=== PATIENT | female | born 1990 | race Caucasian/White ===

== ENCOUNTER 2018-06-03 22:39 | Day surgery (SDC) | payer BC, SELFPAY ==
[2018-06-03 23:09] VITALS: BP 121/74; TEMP 98.3; BMI 36.6
--- NOTE | 2018-06-04 05:13 | PRG ---
DATE OF SERVICE: 06/04/2018 PRIMARY OB: Ms. Diane Lebron. CHIEF COMPLAINT: Abdominal pains. HISTORY OF PRESENT ILLNESS: The patient is a 28-year-old G2, P1 female with an intrauterine pregnanc y at 36 weeks' and 3 days, who is presenting with onset of uterine contractions. She reports that th ey last about 1 minute and feel like they are just a few minutes apart. She denies any severe pain w ith the contractions, but they are moderately uncomfortable. The patient denies vaginal bleeding or leakage of fluid. She denies urinary urgency or frequency. She denies any falls or trauma. She rep orts intermittent headaches, none currently. Denies fever, chest pain, shortness of breath, cough, n ausea, vomiting, any new rashes, hip problems, knee problems, vaginal bleeding, leakage of fluid, uri nary urgency or frequency. She denies (02:00) muscle weakness. PAST MEDICAL HISTORY: Negative. PAST SURGICAL HISTORY: Negative. ALLERGIES: No known drug allergies. MEDICATIONS: vitamins and iron. OB LABS: Unavailable. SOCIAL HISTORY: Denies drug, alcohol, or tobacco use. REVIEW OF SYSTEMS: Per HPI. PHYSICAL EXAMINATION: VITAL SIGNS: Blood pressure is 121/74, heart rate of 91, respiratory rate of 20, temperature 98.3. GENERAL: She appears to be in no acute distress. She is alert and oriented, cooperative and pleasan t to interact with. HEENT: Normocephalic, atraumatic. LUNGS: Clear to auscultation bilaterally. HEART: Regular rate and rhythm. ABDOMEN: Gravid and soft, nontender. EXTREMITIES: Has some mild to moderate edema, 1+ symmetrical in the both legs. GENITOURINARY: Cervical exam is 140 and -3 station with the repeat exam 2 hours later unchanged. heart tracing performed for abdominal pain has been continuous now for nearly 3 hours. Baselin e is noted to be in the 110s to 120s with moderate long-term variability, positive 15 x 15 accelerati ons, no decelerations. Tocometer shows irregular contractions anywhere from 1 to 4 minutes apart. ASSESSMENT AND PLAN: The patient is a 28-year-old G2, P1 female with an intrauterine at 36 weeks' and 4 days and a history of delivery at 37 weeks with her previous , who is presenti ng with uterine contractions and found to be latently laboring. The patient has no evidence of activ e labor at this time. The patient has been offered pain medication prior to discharge, which she has declined. The patient will be discharged to home. She has instructions to follow up with her prima ry OB, Diane Bernardino as scheduled. She has been given term labor precautions. Fetus has a reac tive NST and category 1 tracing.
== END 2018-06-04 02:45 | disposition home or self-care (01) ==
LOC: L&D/OP 22:39
PROVIDERS: ATTEND Advanced Practice Midwife
DX: O47.03 False labor before 37 completed weeks of gestation, third trimester (principal); Z3A.36 36 weeks gestation of pregnancy

== ENCOUNTER 2018-06-08 07:17 | Day surgery (SDC) | payer SELFPAY ==
[2018-06-08 08:00] VITALS: BMI 35.4
[2018-06-08 08:07] VITALS: BP 120/86; TEMP 98.4
[2018-06-08 12:39] LABS: Bilirubin Negative (Negative); Blood, Urine Negative (Negative); Clarity CLEAR (Clear); Glucose, Urine (Dipstick) Negative (Negative); Leukocyte Negative (Negative); Nitrite Negative (Negative); Protein, Urine (Dipstick) Negative (Neg-Trace); Specific Gravity, Urine 1.008 (1.002-1.036)
[2018-06-08 12:43] LABS: Bacteria/HPF None Seen HPF (None Seen); Hyaline Casts/LPF 0-3 HYALINE CAST LPF (0-3 Hyaline); Pathc Cast-AUWi Flag 0.58 (0-2.49); RBC/HPF 0-3 HPF (0-3); Squamous Epithelial 0-3 HPF (0-3); WBC/HPF 0-3 HPF (0-3)
--- NOTE | 2018-06-08 21:13 | PRG ---
DATE OF ENCOUNTER: 06/08/2018 OB ER ENCOUNTER PRIMARY AUDITING CLERK: Ms. Diane Lebron. CHIEF COMPLAINT: Abdominal pains. HISTORY OF PRESENT ILLNESS: Patient is a 28-year-old G2, P1 female with an intrauterine at 37 weeks and 1 day who has been having longstanding uterine contractions and was last seen here abou 4-5 days ago with the same complaints. Patient reports that her contractions are intermittently [facility] but have been persistent. She denies any leakage of fluid. She denies any vaginal bleeding. S he denies any falls. She denies any fever, headache, chest pain, shortness of breath, nausea, vomiti ng, diarrhea, constipation, any new rashes, hip problems, knee problems, muscle weakness, vaginal ble eding, leakage of fluid, urinary urgency and frequency. PAST MEDICAL HISTORY: Negative. PAST SURGICAL HISTORY: Negative. ALLERGIES: No known drug allergies. MEDICATIONS: vitamins and iron. OB LABS: Blood type is B positive, antibody screen is negative. She is rubella immune. Hepatitis B surface antigen in the first trimester is negative. RPR in the first trimester is negative, HIV in the first trimester is negative. Her 1-hour Glucola was 88. She is GBS negative. REVIEW OF SYSTEMS: Per HPI. PHYSICAL EXAMINATION: VITAL SIGNS: Blood pressure 120/86, heart rate of 92, respiratory rate of 20, satting 98% on room ai r. GENERAL: She appears to be in some distress with contractions. She is alert and oriented, cooperati ve and pleasant to interact with. HEENT: Normocephalic, atraumatic. LUNGS: Clear to auscultation bilaterally. HEART: Regular rate and rhythm. ABDOMEN: Gravid and soft and nontender between contractions. EXTREMITIES: Nontender, nonedematous. CERVICAL EXAM: 2.5, 70, -1 station, unchanged after 2-1/2 hours. heart tracing performed for abdominal pain in . Duration is more than 2 hours. Basel ine is noted to be in the 140s with moderate long-term variability, positive accelerations, no decele rations. Contractions are irregular with no consistent pattern. ASSESSMENT AND PLAN: Patient is a 28-year-old G2, P1 female with an intrauterine at 37 wee ks and a day with latent labor and no evidence of active phase. Patient did decline pain medication during her stay and at time of discharge. Fetus has a category 1 tracing with reactive NST. She is GBS negative. She has been given term labor precautions and discharged home. She was seen just brie fly by her primary OB, Ms. Diane Lebron in passing.
== END 2018-06-08 13:00 ==
LOC: L&D/OP 07:17
PROVIDERS: ATTEND Advanced Practice Midwife
DX: O47.1 False labor at or after 37 completed weeks of gestation (principal); Z3A.37 37 weeks gestation of pregnancy
CPT/HCPCS: 51701; 59025; 81001; 99283

== ENCOUNTER 2018-06-19 00:40 | Inpatient (IN) | payer OTHER ==
[2018-06-19 01:09] VITALS: BMI 36.6
[2018-06-19] MEDS ORDERED: Promethazine HCl 25 MG/ML VIAL IM PRN ×2 (01:18→02:44)
[2018-06-19] MEDS ORDERED: Ondansetron HCl/PF 4 MG/2 ML Vial IVP PRN ×2 (01:18→02:44)
[2018-06-19] MEDS ORDERED: Lidocaine 1% (PF) 30 ML VIAL SC PRN (01:18)
[2018-06-19] MEDS ORDERED: HYDROcodone/Acetaminophen 5/325 mg Tablet PO PRN ×4 (01:18→13:16)
[2018-06-19] MEDS ORDERED: Ibuprofen 800 MG TAB PO PRN (01:18)
[2018-06-19] MEDS ORDERED: Butorphanol Tartrate 1 MG/ML VIAL SLOW IVP PRN (01:18)
--- NOTE | 2018-06-19 01:21 | PDOC.LDHP ---
Labor and Delivery H&P HPI: Patient of Melly Lebron Location: L&D Patient is a 28 yo at term, s/p membrane sweep by Light in office, now with CTX./ Good FM, no LOF. Review of System: complete ROS completed and negative as per HPI Current gestational age (weeks): 38 (5 days) Dating criteria: last menstrual period Grav: 2 Para: 1 OB History Details: X 1 Current complications: none Abnormal US findings: No Current medications: pre- vitamins Previous surgical history: none Allergies/Adverse Reactions: Allergies Allergy/AdvReac Type Severity Reaction Status Date / Time No Known Allergies Allergy Verified 06/08/18 07:58 Social history: none - Physical Exam Vital signs reviewed and normal: yes General: NAD Heart: RRR Lungs: CTAB Abdomen: gravid (EFW approx 6 #) Extremeties: no edema FHT: category 1 [place] contractions every: every 2-3 - Vaginal Exam cm dilated: 4 Effacement: 75% Station: -1 - Assessment L&D Assessment: term patient in labor - Plan Plan: admit to L&D, labor augmentation if indicated, informed consent obtained, anesthesia consult for pain management, other (Admitted directly to Melly Lebron)
[2018-06-19] MEDS ORDERED: Bupivacaine 0.5% 20 ML, fentaNYL Citrate/PF 400 MCG in Sodium Chloride 0.9% 72 ML EPIDURAL SCH (02:00)
[2018-06-19] MEDS ORDERED: DISCONTINUE ALL PREVIOUS NARCOTICS FS SCH (02:00)
[2018-06-19 02:02] LABS: Hemoglobin 11.7 g/dL (12.0-16.0); Mean Corpuscular HGB CONC 35.1 g/dL (32.0-36.0); Mean Corpuscular Hemoglobin 31.3 pg (27.0-31.0); Mean Corpuscular Volume 89.1 fL (78.0-98.0); Mean Platelet Volume 7.7 fL (7.4-10.4); Platelet Count 211 thou/uL (130-400); RBC Distribution Width 12.1 % (11.5-14.5); Red Blood Cell (RBC) Count 3.75 mill/uL (4.20-5.40); White Blood Cell (WBC) Count 15.5 thou/uL (4.8-10.8)
[2018-06-19] MEDS: Lactated Ringer's 1,000 ML IV SCH ×2 (02:14→19:07)
[2018-06-19] MEDS ORDERED: Acetaminophen 325 MG TAB PO PRN (02:44)
[2018-06-19] MEDS ORDERED: Naloxone HCl 0.4 mg/ml Vial IVP PRN ×2 (02:44)
[2018-06-19] MEDS ORDERED: diphenhydrAMINE 50 MG/ML VIAL IVP PRN (02:44)
[2018-06-19] MEDS ORDERED: Lactated Ringer's 500 ML IV PRN (02:44)
[2018-06-19] MEDS ORDERED: ePHEDrine/0.9% NaCl/PF SYRINGE 50 mg/10 ml SLOW IVP PRN (02:44)
[2018-06-19] MEDS ORDERED: Eucerin (Mineral Oil/Petrolatum,White) 30 gm Jar TOP PRN (02:44)
[2018-06-19] MEDS ORDERED: fentaNYL Citrate/PF 400 MCG, Bupivacaine 0.5% 20 ML in Sodium Chloride 0.9% 72 ML EPIDURAL SCH (02:45)
[2018-06-19] MEDS ORDERED: Communication Order-Pharmacy FS SCH (02:45)
[2018-06-19 02:50] LABS: HBSAg Index 0.17 S/CO (0-0.99); HIV (1/2) Antibody/Antigen Non-Reactive (NonReactive); HIV 1/2 INDEX 0.07 S/CO (<1.00); Hep B Surf Ag Non-Reactive S/CO (NonReactive)
[2018-06-19] MEDS ORDERED: NS w/ Oxytocin 10 units 500 ML ONE (03:44)
[2018-06-19] MEDS ORDERED: NS w/ Oxytocin 10 units 500 ML IVPB SCH (04:15)
[2018-06-19 05:15] LABS: Syphilis Antibody Nonreactive (Nonreactive); Syphilis Antibody Index 0.06 S/CO (<1.00 Non-Reactive)
--- NOTE | 2018-06-19 09:35 | PDOC.LDPN ---
Labor & Delivery Progress Note - Subjective Subjective: comfortable (with epidural) - Objective Vital signs reviewed and normal: yes Abnormal vital signs: with occasional episodes of tachycardia to the 120. Uterine fundus: non tender Dilation: 8 Effacement: 100% Station: 0 FHT: category 1 AROM: clear fluid Plan: continue plan of care
[2018-06-19] MEDS: NS / Oxytocin 40 units/1000ml 1,000 ML IV PRN ×2 (10:00→11:26)
--- NOTE | 2018-06-19 10:11 | PDOC.OPDEL ---
OB Operative/Delivery Note Delivery Dr/Surgeon: Collin Lebron CNM Pre-Delivery Diagnosis: active labor Procedure/Post Delivery Dx: spontaneous vaginal delivery Weeks gestation: 39 Anesthesia: epidural - Findings A Sex: male Weight: 7 lb 14 oz - 1 min: 8 - 5 min: 9 - Additional Findings/Plan Placenta delivered: spontaneous Repaired Obstetrical Laceration: none Estimated blood loss: 132 qualitative blood loss Compilations/Other Findings: Nuchal cord and leg cord. Post delivery plan: routine recovery
[2018-06-19] MEDS ORDERED: Misoprostol 200 MCG TAB ONE (10:59)
[2018-06-19] MEDS ORDERED: Adacel (T-DAP) 0.5 ML VIAL IM ONE (13:16)
[2018-06-19] MEDS ORDERED: Milk Of Magnesia 30 ML UDCUP PO PRN (13:16)
[2018-06-19] MEDS ORDERED: Measles/Mumps/Rubella 10 MCG/0.5 ML VIAL SC ONE (13:16)
[2018-06-19] MEDS ORDERED: Bisacodyl 10 MG SUPP PR PRN (13:16)
[2018-06-19] MEDS ORDERED: Misoprostol 200 MCG TAB VAG PRN (13:16)
[2018-06-19] MEDS ORDERED: Methylergonovine 0.2 MG/ML VIAL IM PRN (13:16)
[2018-06-19] MEDS ORDERED: Lanolin Ointment 7 GM TUBE TOP PRN (13:16)
[2018-06-19] MEDS ORDERED: Benzocaine/Menthol 20-0.5% 60 ML CAN TOP PRN (13:16)
[2018-06-19] MEDS ORDERED: Varicella virus, LIVE 0.5 ML VIAL SC ONE (13:16)
[2018-06-19] MEDS ORDERED: NS / Oxytocin 40 units/1000ml 1,000 ML IV SCH (13:16)
[2018-06-19] MEDS: Ibuprofen 800 MG TAB PO SCH ×2 (14:03→21:23)
[2018-06-19] MEDS: Ferrous Sulfate 325 MG TAB PO SCH (17:19)
[2018-06-19] MEDS: Docusate Calcium (SURFAK) 240 MG CAP PO SCH (21:23)
[2018-06-20] MEDS: Ibuprofen 800 MG TAB PO SCH ×2 (05:13→13:58)
[2018-06-20 05:30] LABS: Hemoglobin 10.9 g/dL (12.0-16.0); Mean Corpuscular HGB CONC 34.7 g/dL (32.0-36.0); Mean Corpuscular Hemoglobin 31.4 pg (27.0-31.0); Mean Corpuscular Volume 90.4 fL (78.0-98.0); Mean Platelet Volume 7.8 fL (7.4-10.4); Platelet Count 167 thou/uL (130-400); RBC Distribution Width 12.2 % (11.5-14.5); Red Blood Cell (RBC) Count 3.48 mill/uL (4.20-5.40); White Blood Cell (WBC) Count 12.1 thou/uL (4.8-10.8)
[2018-06-20] MEDS: Ferrous Sulfate 325 MG TAB PO SCH (07:58)
[2018-06-20 08:12] VITALS: BP 120/65; TEMP 98
[2018-06-20] MEDS: Docusate Calcium (SURFAK) 240 MG CAP PO SCH (08:34)
[2018-06-20] MEDS ORDERED: Prenatal Vitamin 1 TAB PO SCH (09:00)
--- NOTE | 2018-06-20 16:57 | PDOC.PP ---
Post Progress Note Post Day #: 1 Subjective: doing well. desires to go home. PO intake tolerated: yes Flatus: yes Ambulation: yes Vital Signs (12 hours) Temp Pulse Resp BP 06/20/18 08:00 98.0 F 68 18 120/65 06/20/18 07:40 98.0 F 68 18 06/20/18 05:10 97.6 F 70 16 109/71 Weight Weight 200 lb - Physical Examination General: NAD Cardiovascular: no m/r/g, RRR Respiratory: clear to auscultation bilaterally, non-labored breathing Abdominal: + bowel sounds, lochia (minimal) Fundus firm & at: Umbilicus -1 Extremities: negative homans (B) Skin: no rash Neurological: no gross focal deficits Psychiatric: A&Ox3, normal affect Result Diagrams: 06/20/18 05:06 Additional Labs: Post Labs Blood Type B POSITIVE 06/19/18 01:37 Hep Bs Antigen Non-Reactive S/CO (NonReactive) 06/19/18 01:37 - Assessment/Plan dischare home today with 6 week.
== END 2018-06-20 17:40 | disposition home or self-care (01) | DRG 775 ==
LOC: L&D/OP 00:40 → L&D 01:30 → 3SW 13:03
PROVIDERS: ADMIT Obstetrics & Gynecology; ATTEND Advanced Practice Midwife
PROC: 10E0XZZ Delivery of Products of Conception, External Approach (ICD-10-PCS; principal; 2018-06-19)
DX: O80 Encounter for full-term uncomplicated delivery (principal); Z3A.39 39 weeks gestation of pregnancy; Z37.0 Single live birth
CPT/HCPCS: 36415; 51701; 51702; 85027; 86780; 86850; 86870; 86900; 86901; 87340; 87389; 90716; 99285; J3010; J3490; J7050

== ENCOUNTER 2020-02-09 13:58 | Inpatient (IN) | payer BC, OTHER ==
[~2020-02-09 13:58] MED LIST: Bupivacaine/Epinephrine 0.25% 30 ML VIAL ONE
[2020-02-09 14:21] VITALS: BMI 34.7
[2020-02-09] MEDS ORDERED: Penicillin G Potassium 5 MILL.UNITS VIAL ONE (14:46)
--- NOTE | 2020-02-09 14:47 | PDOC.LDHP ---
Labor and Delivery H&P Chief complaint: loss of fluid HPI: Patient was seen at [facility] for routine visit. She reports having a gush of fluid last night a 0200 am. She also had some irregular contractions and bloody show. Current gestational age (weeks): 36 (and 6 days) Due date: 03/02/20 Grav: 3 Para: 2 OB History Details: 2011 8.5 2018 7. 14 Current complications: other (PPROM) Current medications: pre- vitamins Previous surgical history: none Allergies/Adverse Reactions: Allergies Allergy/AdvReac Type Severity Reaction Status Date / Time No Known Allergies Allergy Verified 06/08/18 07:58 Social history: none - Physical Exam Vital signs reviewed and normal: yes General: NAD Lungs: nonlabored breathing Abdomen: gravid FHT: category 1 (150 baseline. +Accels.) - Vaginal Exam cm dilated: 2 Effacement: 75% Station: -1 - OB Labs Blood type: B RH: positive Antibody Screen: negative HIV: negative RPR: negative HEPSAg: negative 1 hour GCT: negative GBS: unknown Urine drug screen: negative Rubella: immune - Assessment L&D Assessment: premature rupture of membranes - Plan Plan: admit to L&D, GBS antibiotic prophylaxis, informed consent obtained -: Betamethasone 12mg IM given in office for PPROM at 36.6 Pitocin for induction
[2020-02-09] MEDS ORDERED: Methylergonovine 0.2 MG/ML VIAL IM PRN ×2 (14:56→23:30)
[2020-02-09] MEDS ORDERED: Lidocaine 1% (PF) 30 ML VIAL SC PRN (14:56)
[2020-02-09] MEDS ORDERED: Promethazine HCl 25 MG/ML VIAL IM PRN (14:56)
[2020-02-09] MEDS ORDERED: Ibuprofen 800 MG TAB PO PRN (14:56)
[2020-02-09] MEDS ORDERED: hydrALAZINE 20 MG/ML VIAL SLOW IVP PRN ×2 (14:56→23:30)
[2020-02-09] MEDS ORDERED: Ondansetron PF 4 MG/2 ML Vial IVP PRN ×2 (14:56→23:30)
[2020-02-09] MEDS ORDERED: Misoprostol 200 MCG TAB PR PRN (14:56)
[2020-02-09] MEDS ORDERED: HYDROcodone/Acetaminophen 5/325 mg Tablet PO PRN ×4 (14:56→23:30)
[2020-02-09] MEDS ORDERED: NS / Oxytocin 40 units/1000ml 1,000 ML IV PRN (14:56)
[2020-02-09] MEDS ORDERED: Butorphanol Tartrate 1 MG/ML VIAL SLOW IVP PRN (14:56)
[2020-02-09] MEDS ORDERED: Penicillin G Potassium 5 MILL.UNITS in Sodium Chloride 0.9% 100 ML IVPB SCH (15:00)
[2020-02-09] MEDS ORDERED: NS w/ Oxytocin 10 units 500 ML IV SCH (15:00)
[2020-02-09] MEDS ORDERED: Lactated Ringer's 1,000 ML IV SCH (15:00)
[2020-02-09 15:28] LABS: Hemoglobin 11.1 g/dL (12.0-16.0); Mean Corpuscular HGB CONC 33.9 g/dL (32.0-36.0); Mean Corpuscular Hemoglobin 29.3 pg (27.0-31.0); Mean Corpuscular Volume 86.5 fL (78.0-98.0); Mean Platelet Volume 8.6 fL (7.4-10.4); Platelet Count 244 thou/uL (130-400); RBC Distribution Width 11.5 % (11.5-14.5); White Blood Cell (WBC) Count 12.3 thou/uL (4.8-10.8)
[2020-02-09 16:07] LABS: HBSAg Index 0.25 S/CO (0-0.99); Hep B Surf Ag Non-Reactive S/CO (NonReactive); Syphilis Antibody Nonreactive (Nonreactive); Syphilis Antibody Index 0.06 S/CO (<1.00 Non-Reactive)
[2020-02-09] MEDS ORDERED: Fentanyl 4 mcg/Bup 0.1% Cadd 100 ML ONE (18:08)
[2020-02-09] MEDS: Penicillin G 2.5 MILL.units 2.5 MILL.UNITS in Premix Bag 1 BAG IVPB SCH (20:24)
--- NOTE | 2020-02-09 21:45 | PDOC.OPDEL ---
OB Operative/Delivery Note Delivery Dr/Surgeon: Collin Lebron Pre-Delivery Diagnosis: ruptured membrane Procedure/Post Delivery Dx: spontaneous vaginal delivery Weeks gestation: 36 (and 6 days) Anesthesia: epidural - Findings A Sex: female Weight: 5 lb 12 oz - 1 min: 9 - 5 min: 9 - Additional Findings/Plan Placenta delivered: spontaneous Repaired Obstetrical Laceration: none Estimated blood loss: 50mL Post delivery plan: routine recovery
[2020-02-09] MEDS ORDERED: Benzocaine-Menthol 82.5 ML CAN TOP PRN (23:30)
[2020-02-09] MEDS ORDERED: NS / Oxytocin 40 units/1000ml 1,000 ML IV SCH (23:30)
[2020-02-09] MEDS ORDERED: Milk Of Magnesia 30 ML UDCUP PO PRN (23:30)
[2020-02-09] MEDS ORDERED: Bisacodyl 10 MG SUPP PR PRN (23:30)
[2020-02-10] MEDS: Penicillin G 2.5 MILL.units 2.5 MILL.UNITS in Premix Bag 1 BAG IVPB SCH (00:52)
[2020-02-10] MEDS: Ibuprofen 800 MG TAB PO SCH ×3 (05:34→20:24)
--- NOTE | 2020-02-10 06:28 | PDOC.PP ---
Post Progress Note Post Day #: 0 to 1 Subjective: Doing well. Desires DC to home at 2100 tonight if able PO intake tolerated: yes Flatus: yes Ambulation: yes Vital Signs (12 hours) Temp Pulse Resp BP 02/10/20 01:45 98.0 F 97 16 137/69 02/10/20 00:45 98.9 F 89 16 124/66 02/09/20 23:45 98.8 F 84 16 136/79 Weight Weight 190 lb - Physical Examination Respiratory: non-labored breathing Abdominal: lochia, no distention, appropriately TTP Extremities: negative homans (B) Neurological: no gross focal deficits Psychiatric: A&Ox3, normal affect Result Diagrams: 02/09/20 15:14 Additional Labs: Post Labs Blood Type B POSITIVE 02/09/20 15:13 Hep Bs Antigen Non-Reactive S/CO (NonReactive) 02/09/20 15:14 (1) (spontaneous vaginal delivery) Code(s): O80 - ENCOUNTER FOR FULL-TERM UNCOMPLICATED DELIVERY Status: Acute - Assessment/Plan Routine PP. Pt desires DC to home at 2100 if possible. I have requested to notify Pedi of possible DC home late this PM.
[2020-02-10] MEDS ORDERED: Adacel (T-DAP) 0.5 ML SYRINGE IM ONE (09:00)
[2020-02-10] MEDS: Prenatal Vitamin 1 TAB PO SCH (09:14)
[2020-02-10] MEDS: Docusate Calcium (SURFAK) 240 MG CAP PO SCH ×2 (09:14→20:24)
[2020-02-10] MEDS: Ferrous Sulfate 325 MG TAB PO SCH ×2 (09:15→17:45)
[2020-02-10 21:28] VITALS: TEMP 98.3
[2020-02-11] MEDS: Ibuprofen 800 MG TAB PO SCH (06:07)
--- NOTE | 2020-02-11 06:17 | PDOC.PP ---
Post Progress Note Post Day #: PPD2 Subjective: Resting, no c/o. PO intake tolerated: yes Flatus: yes Ambulation: yes Vital Signs (12 hours) Temp Pulse Resp BP Pulse Ox 02/10/20 20:00 98.3 F 79 16 119/75 99 Weight Weight 86.183 kg - Physical Examination General: NAD Respiratory: non-labored breathing Neurological: no gross focal deficits Psychiatric: normal affect Result Diagrams: 02/09/20 15:14 Additional Labs: Post Labs Blood Type B POSITIVE 02/09/20 15:13 Hep Bs Antigen Non-Reactive S/CO (NonReactive) 02/09/20 15:14 - Assessment/Plan DC home. Precautions. RTC 6 weeks with Melly Light.
[2020-02-11 08:52] VITALS: BP 126/86
[2020-02-11] MEDS: Ferrous Sulfate 325 MG TAB PO SCH (08:55)
[2020-02-11] MEDS: Prenatal Vitamin 1 TAB PO SCH (09:22)
[2020-02-11] MEDS: Docusate Calcium (SURFAK) 240 MG CAP PO SCH (09:22)
== END 2020-02-11 12:25 | disposition home or self-care (01) | DRG 807 ==
LOC: L&D 13:58 → 3SW 23:47
PROVIDERS: ADMIT Obstetrics & Gynecology; ATTEND Obstetrics & Gynecology
PROC: 10E0XZZ Delivery of Products of Conception, External Approach (ICD-10-PCS; principal; 2020-02-09)
DX: O42.013 Preterm premature rupture of membranes, onset of labor within 24 hours of rupture, third trimester (principal); Z37.0 Single live birth; Z3A.36 36 weeks gestation of pregnancy
CPT/HCPCS: 36415; 51702; 84112; 85027; 86780; 86850; 86900; 86901; 87340; J2540; J2590; J3490